=== PATIENT | male | born 1950 | race Caucasian/White ===

== ENCOUNTER → 2017-08-31 | Outpatient (CLI) | payer OTHER ==
[~2017-08-31] MED LIST: ASPIRIN EC81 M1 PO; BENADRYL25 MG PO; BENICAR HCT 401 EACH PO; BENICAR40 MG PO; BYSTOLIC 5 MG5 M1 PO; CEFAZOLIN 1GM VI1 G1 IV; CEFUROXIME500 MG PO; COQ10 SG 100 S1 EACH PO; CRESTOR10 MG PO; FENOFIBRATE160 MG PO; FLOMAX0.4 MG PO; HYDROCODON-ACE1 EAC7 PO; HYOSCYAMINE0.125 MG; IBUPROFEN 800800 M1 PO; IMDUR 30 MG TAB30 M1 PO; ITRACONAZOLE 1100 M1 PO; OMEPRAZOLE 20 M20 M1 PO; PLAVIX 75 MG TA75 MG PO; POTASSIUM20 PO; PREDNISONE 5 MG5 M1 PO; PROTONIX40 M1 PO; SLEEP SOFTGEL1 EACH PO; SYNTHROID75 MCG PO; TAMIFLU30 MG PO; ULTRAM 50MG TAB50 MG PO
== END ==
LOC: RAD 09:22
DX: R05 Cough (principal)

== ENCOUNTER 2017-09-06 08:35 | Inpatient (IN) | payer OTHER ==
[~2017-09-06] VITALS: Ht 180.3 cm; Wt 106.1 kg
--- NOTE | ~2017-09-06 | HC ---
[facility] [address] CONSULTATION Name: ROSINA PIMENTEL Room #: 406-P [facility] IN M.R.#: [id number] Admission: 09/06/17 Attend Phys: Kaur Perez Discharge: Date of : 54 Report #: [id number] THIS REPORT FOR: //name// CC: Kaur Hurtado DATE OF SERVICE: 09/06/2017 REASON FOR CONSULTATION: I was asked to evaluate concerning persistent fever in the setting of immunosuppression for rheumatoid arthritis. HISTORY OF PRESENT ILLNESS: Two weeks ago, the patient developed acute onset of fever, chills, sweats, cough and shortness of breath. Did not improve and was seen in the outpatient clinic were influenza swab was negative. Placed on a 1 week course of Levaquin. Still did not improve and now is hospitalized for further evaluation. He has had nonproductive cough. Frontal headache. Mild pharyngitis symptoms, postnasal drip. No nausea, vomiting or diarrhea. No dysuria or frequency. His appetite has been reasonable. Generalized weakness overall with shortness of breath. He is on Humira and methotrexate. He does self-injection of his Humira on a weekly basis. ALLERGIES: None known. MEDICATIONS: As noted on his MAR including Plavix, aspirin, Imdur, hyoscyamine, fenofibrate, Ultram, Flomax, Protonix, Bystolic, Synthroid, Crestor, Coenzyme Q10, now on cefepime. PAST MEDICAL HISTORY: Coronary artery disease, status post CABG and stenting. Hypertension, gastroesophageal reflux, obstructive sleep apnea, ulnar nerve transposition left and right arm, hyperlipidemia, previous right lower extremity cellulitis in 2012. FAMILY HISTORY: Noncontributory. SOCIAL HISTORY: Past smoker, no significant alcohol intake. No HIV risk factors. No tuberculosis exposure. His travel has been to [place], [place] within the last month. Lives with his who has not been ill. REVIEW OF SYSTEMS: As noted above with no rash. His arthritis symptoms have been stable. No neurologic changes. PHYSICAL EXAMINATION: VITAL SIGNS: He was afebrile and hemodynamically stable. GENERAL: He was alert and cooperative, in no acute distress. Oxygen saturation was normal on room air. SKIN: Unremarkable. [address] [address] CONSULTATION Name: ROSINA PIMENTEL Room #: 406-P [facility] IN M.R.#: [id number] Admission: 09/06/17 Attend Phys: Kaur Perez Discharge: Date of : 54 Report #: [id number] HEENT: Unremarkable. NECK: Supple, no adenopathy. LUNGS: Clear. HEART: Regular without murmur. ABDOMEN: Mildly obese, nontender. No hepatosplenomegaly or mass appreciated. EXTREMITIES: Peripheral IV in place. Joints seem reasonable. Nothing active for tenosynovitis. NEUROLOGIC: Normal. LABORATORY STUDIES: Chest x-ray was clear. Urinalysis unremarkable. Ultrasound of the abdomen showed increased spleen size with question of a cyst. Sodium 136, potassium 3.8, bicarb of 26, creatinine 1.7, AST 102, ALT 157, alkaline phosphatase 221, bilirubin 1.1. Lipase 524, hemoglobin 13.5, platelet count 181,000, white count 5.6 with 68% segs, 4% bands. IMPRESSION: A 67-year-old immunosuppressed on Humira and methotrexate for rheumatoid arthritis. He has had a nearly 3-week history of fever, sweats, cough and shortness of breath. I am suspecting influenza would still be the most likely source. He has no infiltrate on chest x-ray, but will need to reassess after hydration. He did not respond to oral antibiotic therapy. He recently gave himself another Humira shot reducing his immune response even more. RECOMMENDATIONS: We will obtain cultures of blood, sputum, viral respiratory panel, urine antigens, hydrate. Follow up chest x-ray. We will need to follow his creatinine for I suspect his acute renal failure is due to prerenal state. He has mild elevation in his liver function test. We will screen for legionella, also check mycoplasma. Less likely fungal in nature. I will screen for histoplasma. We will continue with broad antibiotic coverage including antiviral and antibiotic therapy. We will reassess in the next 24 hours his response to therapy. Hold further immunosuppression. <ELECTRONICALLY SIGNED> By: Thang Goodwin MD 09/07/17 1446 29 43 Thang Goodwin MD /nt
[~2017-09-06 08:35] MED LIST changes: -CEFUROXIME500 MG PO; -ITRACONAZOLE 1100 M1 PO; -PREDNISONE 5 MG5 M1 PO; -TAMIFLU30 MG PO
[2017-09-06 08:36] VITALS: BP 134/86
[2017-09-06 10:20] LABS: HEMATOCRIT 39.5 % (42.0-52.0); HEMOGLOBIN 13.5 gm/dL (14.0-18.0); MCH 30.7 pg (26.0-34.0); MCHC 34.3 g/dL (28.0-37.0); MCV 89.6 fL (80.0-100.0); PLATELET COUNT 181 thou/uL (150-400); RBC 4.41 mil/uL (4.50-6.00); RDW 14.9 % (10.5-14.5); WBC 5.6 thou/uL (4.0-11.0)
[2017-09-06 10:28] LABS: CALCIUM 9.3 mg/dL (8.5-10.1); CREATININE 1.7 mg/dL (0.7-1.3); POTASSIUM 3.8 mmol/L (3.5-5.1)
[2017-09-06 10:34] LABS: ALBUMIN 3.3 g/dL (3.4-5.0); TOTAL BILIRUBIN 1.1 mg/dL (<0.1-1.0); TOTAL PROTEIN 6.8 g/dL (6.4-8.2)
[2017-09-06 10:58] LABS: URINE BLOOD NEGATIVE (Negative); URINE CLARITY CLEAR; URINE COLOR YELLOW; URINE GLUCOSE-RANDOM* NEGATIVE (Negative); URINE KETONES NEGATIVE (Negative); URINE LEUKOCYTES-REFLEX NEGATIVE (Negative); URINE NITRITE-REFLEX NEGATIVE (Negative); URINE PROTEIN (DIPSTICK) 1+ (Negative); URINE SPECIFIC GRAVITY 1.025 (1.005-1.035)
[2017-09-06 11:02] LABS: URINE BILIRUBIN NEGATIVE (Negative)
[2017-09-06 11:11] LABS: SQUAMOUS None Seen /LPF (0-3)
[2017-09-06 11:12] LABS: BACTERIA-REFLEX 1-9 Few /HPF (None Seen); CASTS None Seen /LPF (None Seen); CRYSTALS None Seen /LPF (None Seen); URINE RBC None Seen /HPF (0-2); URINE WBC-REFLEX 0-5 Rare /HPF (0-5)
[2017-09-06 12:18] LABS: AMYLASE 147 U/L (25-115); LIPASE 524 U/L (73-393)
[2017-09-06 13:18] VITALS: BP 134/74
[2017-09-06 13:36] VITALS: BP 120/66
[2017-09-06 16:00] VITALS: BP 125/67
[2017-09-06 20:00] VITALS: BP 162/64
[2017-09-06 23:11] LABS: HAV IgM AB (ANTI-HAV IgM) Negative (Negative); HEPATITIS B SURFACE AG Negative (Negative); HEPATITIS C VIRUS AB <0.1 (0.0-0.9)
[2017-09-07 03:54] VITALS: BP 139/81
[2017-09-07 06:43] LABS: ALBUMIN 2.9 g/dL (3.4-5.0); CALCIUM 8.7 mg/dL (8.5-10.1); CREATININE 1.4 mg/dL (0.7-1.3); POTASSIUM 4.1 mmol/L (3.5-5.1); TOTAL BILIRUBIN 0.7 mg/dL (<0.1-1.0); TOTAL PROTEIN 5.2 g/dL (6.4-8.2)
[2017-09-07 08:21] VITALS: BP 119/51
[2017-09-07 08:51] VITALS: BP 124/74
[2017-09-07 16:00] VITALS: BP 144/75
[2017-09-07 20:32] VITALS: BP 142/69
[2017-09-08 05:10] VITALS: BP 134/73
[2017-09-08 06:48] LABS: ALBUMIN 2.9 g/dL (3.4-5.0); CALCIUM 9.2 mg/dL (8.5-10.1); CREATININE 1.3 mg/dL (0.7-1.3); POTASSIUM 4.2 mmol/L (3.5-5.1); TOTAL BILIRUBIN 0.7 mg/dL (<0.1-1.0); TOTAL PROTEIN 6.2 g/dL (6.4-8.2)
[2017-09-08 07:50] VITALS: BP 153/79
[2017-09-08 16:40] VITALS: BP 175/80
[2017-09-08 17:06] VITALS: BP 145/65
[2017-09-08 17:07] VITALS: BP 151/73
[2017-09-08 17:09] LABS: HISTOPLASMA MYCELIAL-ID Positive (Negative)
[2017-09-08 20:16] VITALS: BP 140/70
[2017-09-09 04:09] VITALS: BP 133/68
[2017-09-09 04:59] LABS: AMYLASE 45 U/L (25-115); LIPASE 195 U/L (73-393)
[2017-09-09 08:11] VITALS: BP 151/81
[2017-09-09] MEDS ORDERED: PREDNISONE 5 MG5 M1 PO (10:33)
[2017-09-09] MEDS ORDERED: TAMIFLU30 MG PO (10:33)
[2017-09-09] MEDS ORDERED: CEFUROXIME500 MG PO (10:33)
[2017-09-09] MEDS ORDERED: ITRACONAZOLE 1100 M1 PO (14:41)
[2017-09-09 15:43] VITALS: BP 151/81
[2017-09-09 23:07] LABS: ADENOVIRUS Negative (Negative); INFLUENZA A Negative (Negative); INFLUENZA B Negative (Negative); METAPNEUMOVIRUS Negative (Negative); PARAINFLUENZA 1 Negative (Negative); PARAINFLUENZA 2 Negative (Negative); PARAINFLUENZA 3 Negative (Negative); RHINOVIRUS Negative (Negative); RSV A Negative (Negative); RSV B Negative (Negative)
== END 2017-09-09 16:15 | disposition home or self-care (01) | DRG 871 ==
LOC: ER 08:35 → 4N 11:23 → EROBS 11:23 → 4N 13:58 → ENTRNSPT 09-09 16:07 → 4N 09-09 16:15
PROVIDERS: Hospitalist; Nurse Practitioner Family; Specialist
DX: A41.9 Sepsis, unspecified organism (principal); J18.9 Pneumonia, unspecified organism; M06.9 Rheumatoid arthritis, unspecified; I10 Essential (primary) hypertension; K21.9 Gastro-esophageal reflux disease without esophagitis; E78.5 Hyperlipidemia, unspecified; I25.10 Atherosclerotic heart disease of native coronary artery without angina pectoris; R16.1 Splenomegaly, not elsewhere classified; G47.33 Obstructive sleep apnea (adult) (pediatric); E66.9 Obesity, unspecified; Z68.32 Body mass index [BMI] 32.0-32.9, adult; I25.2 Old myocardial infarction; Z95.1 Presence of aortocoronary bypass graft; Z95.5 Presence of coronary angioplasty implant and graft; Z79.02 Long term (current) use of antithrombotics/antiplatelets; Z79.82 Long term (current) use of aspirin; Z79.899 Other long term (current) drug therapy; Z87.891 Personal history of nicotine dependence
CPT/HCPCS: 10091

== ENCOUNTER → 2017-09-12 | Outpatient (CLI) | payer OTHER ==
[~2017-09-12] MED LIST changes: +CEFUROXIME500 MG PO; +ITRACONAZOLE 1100 M1 PO; +PREDNISONE 5 MG5 M1 PO; +TAMIFLU30 MG PO
== END ==
LOC: RAD 16:21
DX: R07.89 Other chest pain (principal); R06.02 Shortness of breath

== ENCOUNTER 2018-05-17 05:25 | Inpatient (IN) | payer OTHER ==
[2018-05-10 08:41] LABS: HEMATOCRIT 38.1 % (42.0-52.0); HEMOGLOBIN 13.4 gm/dL (14.0-18.0); MCH 32.6 pg (26.0-34.0); MCHC 35.2 g/dL (28.0-37.0); MCV 92.5 fL (80.0-100.0); RBC 4.12 mil/uL (4.50-6.00); RDW 13.2 % (10.5-14.5); WBC 6.4 thou/uL (4.0-11.0)
[2018-05-10 08:44] LABS: URINE BILIRUBIN NEGATIVE (Negative); URINE BLOOD NEGATIVE (Negative); URINE CLARITY CLEAR; URINE COLOR YELLOW; URINE GLUCOSE-RANDOM* NEGATIVE (Negative); URINE KETONES NEGATIVE (Negative); URINE LEUKOCYTES-REFLEX NEGATIVE (Negative); URINE NITRITE-REFLEX NEGATIVE (Negative); URINE PROTEIN (DIPSTICK) TRACE (Negative); URINE SPECIFIC GRAVITY >= 1.030 (1.005-1.035); URINE UROBILINOGEN 0.2 E.U./dl (0.2-1.0)
[2018-05-10 08:47] LABS: ALBUMIN 3.9 g/dL (3.4-5.0); CALCIUM 9.6 mg/dL (8.5-10.1); CREATININE 1.6 mg/dL (0.7-1.3); POTASSIUM 3.5 mmol/L (3.5-5.1)
[2018-05-10 08:53] LABS: PROTIME 10.7 Seconds (9.3-11.4)
[~2018-05-17] VITALS: Ht 180.3 cm; Wt 101.6 kg
--- NOTE | ~2018-05-17 | O ---
[facility] [place] [address] OPERATIVE REPORT Name: ROSINA PIMENTEL Room #: 150-3 [facility] IN M.R.#: [id number] Admission: 05/17/18 Attend Phys: Quinn Medina MD Discharge: Date of : 54 Report #: [id number] THIS REPORT FOR: //name// CC: Markie Medina DATE OF SERVICE: 05/17/2018 PREOPERATIVE DIAGNOSIS: Right femoral head avascular necrosis. POSTOPERATIVE DIAGNOSIS: Right femoral head avascular necrosis. PROCEDURE: Right total hip arthroplasty. SURGEON: Quinn Medina MD. JAVA SUPPORT ENGINEER: None. ANESTHESIA: General endotracheal. IMPLANTS: [employer] size 14 high offset Synergy press fit stem, a size 58 R3 acetabular cup with one acetabular screw and a size 40+0 Oxinium head. ESTIMATED BLOOD LOSS: 50 mL. COMPLICATIONS: None. SPECIMENS: None. CONDITION UPON LEAVING THE OPERATING ROOM: Stable. INDICATIONS FOR PROCEDURE: The patient is a 68-year-old gentleman with right femoral head avascular necrosis on MRI scan. He has had continued severe hip pain and after discussion with him, he elected for right total hip arthroplasty. DESCRIPTION OF PROCEDURE: Risks, benefits, alternatives, complications were discussed in detail with the patient including but not limited to risk of anesthesia, risk of damage to nerves, arteries, blood vessels, risk for infection, bleeding, risk for continued hip pain, leg length discrepancy, instability and need for reoperation. Informed consent was obtained from the patient. Right hip was appropriately marked in the preoperative holding area. IV Ancef was given for preoperative antibiotics. He was brought to the operating room and placed in supine position on operating room table. General anesthesia was induced without complications. He was then placed in the left lateral decubitus position with the right hip uppermost. Right hip was then prepped and draped in normal sterile fashion. Timeout was performed properly [facility] [address] [place] [address] OPERATIVE REPORT Name: ROSINA PIMENTEL Room #: 150-3 [facility] IN M.R.#: [id number] Admission: 05/17/18 Attend Phys: Quinn Medina MD Discharge: Date of : 54 Report #: [id number] identifying the patient and procedure as well as the instrumentation and implants. All in the operating room were in agreement. Standard posterior approach to the hip was made with 10 blade through the skin. Dissection was taken down to the fascia with Bovie cautery, and the fascia was cleaned off with Wiggins elevator. Fresh 10 blade was used to make a fascial incision. This was taken proximally and distally with Moeller scissor. Charnley retractor was placed. Trochanteric bursa was taken down with Bovie cautery. Piriformis tendon was identified, tagged and taken down with Bovie. Short external rotators were also taken down with Bovie cautery. Capsulotomy was made and capsule ends were tagged for later repair. Hip was dislocated and femoral neck cut was made 1 cm proximal to lesser trochanter based on preoperative templating. Femoral head was inspected. There was mild collapse of the superior portion of the femoral head. Deep acetabular retractors were placed and labrum was removed sharply. Pulvinar was removed with Bovie cautery. Acetabulum was sequentially reamed up to a size 58, at which point, there was excellent bleeding cancellous bone. Size 57 trial cup was placed and found to have a good fit. A final size 58 R3 acetabular cup was placed and seated. One acetabular screw was placed for backup fixation. Polyethylene liner for a 40 head was placed. Attention was then turned to the femur. This was reamed and broached up to a size 14, at which point, the size 14 broach was stable. This was trialed with a high offset. Hip was reduced, taken through range of motion, found to be stable, found to have equal leg lengths. Hip was dislocated. Broach was removed. A final size 14 high offset Synergy press fit stem was placed. This was trialed again with a 40+0 head. Hip was reduced, taken through range of motion, found to be stable, found to have equal leg lengths. Hip was dislocated one last time. A final size 40+0 Oxinium head was placed. Hip was reduced, taken through range of motion, found to be stable, found to have equal leg lengths. After this, the hip was thoroughly irrigated with normal saline. A gram of vancomycin was placed deep in the joint. A periarticular injection consisting of morphine, ropivacaine, epinephrine and Toradol was placed around the hip joint capsule. The capsule and piriformis were repaired with 0 FiberWire. Fascia was closed with 0 Vicryl, skin was closed with 2-0 Vicryl, 3-0 Monocryl. Dermabond and a LIS dressing were applied. The patient tolerated this procedure well and went to recovery room under care of Anesthesia postoperatively. By: 1411 1452 Quinn Medina MD /nt
[~2018-05-17 05:25] MED LIST changes: +CALCIUM 500 +1 EAC5 PO; +CENTRUM SILVER1 EAC4 PO; +CRESTOR40 MG PO; +FOLIC ACID1 MG PO; +HYDROXYCHLOROQ200 M1 PO; +TIROSINT125 MCG PO; +VITAMIN D35000 UNIT PO; +VITAMIN E400 UNIT PO; +ZETIA10 MG PO
[2018-05-17 10:18] VITALS: BP 134/74
[2018-05-17 17:00] VITALS: BP 118/70
[2018-05-17 19:30] VITALS: BP 151/80
[2018-05-18 05:10] LABS: HEMATOCRIT 36.6 % (42.0-52.0); HEMOGLOBIN 12.6 gm/dL (14.0-18.0); MCH 32.3 pg (26.0-34.0); MCHC 34.3 g/dL (28.0-37.0); MCV 94.1 fL (80.0-100.0); RBC 3.88 mil/uL (4.50-6.00); RDW 12.6 % (10.5-14.5); WBC 18.8 thou/uL (4.0-11.0)
[2018-05-18 05:18] VITALS: BP 186/82
[2018-05-18 08:40] VITALS: BP 147/79
[2018-05-18] MEDS ORDERED: TRI-BUFFERED A325 M1 PO (10:11)
[2018-05-18] MEDS ORDERED: NEURONTIN 300300 M1 PO (10:11)
[2018-05-18] MEDS ORDERED: CELEBREX 200 M200 M1 PO (10:11)
[2018-05-18 16:41] VITALS: BP 147/79
[2018-05-18 18:37] VITALS: BP 147/79
== END 2018-05-18 19:00 | disposition home health service (06) | DRG 470 ==
LOC: TBA 05:25 → 4E 05:25 → PRE 05:43 → 4E 15:08
PROVIDERS: Orthopaedic Surgery
PROC: 0SR906A Replacement of Right Hip Joint with Oxidized Zirconium on Polyethylene Synthetic Substitute, Uncemented, Open Approach (ICD-10-PCS; principal; 2018-05-17)
DX: M87.851 Other osteonecrosis, right femur (principal); M75.51 Bursitis of right shoulder; M17.11 Unilateral primary osteoarthritis, right knee; M19.031 Primary osteoarthritis, right wrist; M25.461 Effusion, right knee; M23.41 Loose body in knee, right knee; M22.41 Chondromalacia patellae, right knee; Z79.82 Long term (current) use of aspirin; Z79.899 Other long term (current) drug therapy; Z87.891 Personal history of nicotine dependence
CPT/HCPCS: 10783; 50010; 50101; 50382; 50414; 51771; 53000; 53078; 53368; 54118; 56524; 56527; 56528; 56530; 57095; 57103; 62110; 62900; 70005

== ENCOUNTER 2018-08-23 19:30 | Emergency (ER) | payer OTHER ==
[~2018-08-23] VITALS: Ht 180.3 cm; Wt 104.3 kg
[~2018-08-23 19:30] MED LIST changes: +CELEBREX 200 M200 M1 PO; +NEURONTIN 300300 M1 PO; +TRI-BUFFERED A325 M1 PO
[2018-08-23] MEDS ORDERED: ASPIRIN325 PO (19:44)
[2018-08-23] MEDS ORDERED: NORCO 5-325 TA1 EACH PO ×2 (19:44→22:32)
[2018-08-23] MEDS ORDERED: MOBIC7.5 MG PO (22:32)
[2018-08-23] MEDS ORDERED: ORPHENADRINE C100 M2 PO (22:32)
[2018-08-23 22:39] VITALS: BP 142/70
== END 2018-08-23 22:40 | disposition home or self-care (01) ==
LOC: ER 19:30
DX: M25.551 Pain in right hip (principal); Z96.641 Presence of right artificial hip joint; Z87.891 Personal history of nicotine dependence